=== PATIENT | male | born 1995 | race African-American/Black ===

== ENCOUNTER 2020-05-19 17:51 | Emergency (ER) | payer MEDICAID, OTHER ==
[~2020-05-19] VITALS: Ht 185.4 cm; Wt 140.6 kg
[2020-05-19 18:52] VITALS: BP 137/113
== END 2020-05-19 22:46 | disposition home or self-care (01) ==
LOC: ER 17:51
DX: J06.9 Acute upper respiratory infection, unspecified (principal); R03.0 Elevated blood-pressure reading, without diagnosis of hypertension; Z20.822 Contact with and (suspected) exposure to COVID-19
CPT/HCPCS: 36415; 71045; 87426; 99284; C9803; U0003

== ENCOUNTER 2020-06-12 20:57 | Emergency (ER) | payer OTHER ==
[~2020-06-12] VITALS: Ht 185.4 cm; Wt 145.1 kg
[2020-06-13] MEDS ORDERED: KETOROLAC TROMETH 30 MG/ML 1ML VIAL IV ONE (00:45)
[2020-06-13] MEDS ORDERED: SODIUM CHLORIDE 0.9% 1,000 ML IV ONE (00:45)
[2020-06-13 01:49] VITALS: BP 171/108
[2020-06-13] MEDS ORDERED: cloNIDine HCL 0.1 MG TAB PO ONE (02:00)
== END 2020-06-13 03:01 | disposition home or self-care (01) ==
LOC: ER 20:59
DX: R51.9 Headache, unspecified (principal); R03.0 Elevated blood-pressure reading, without diagnosis of hypertension
CPT/HCPCS: 96361; 96374; 99283; J1885